=== PATIENT | male | born 1965 | race Caucasian/White ===

== ENCOUNTER → 2017-11-30 | Outpatient (CLI) | payer BC ==
[2017-11-30 13:06] LABS: Basophils % (A) 0 %; Eosinophils # (A) 0.2 k/uL (0-0.7); Eosinophils % (A) 2 %; HCT 48.4 % (39.0-53.0); HGB 15.9 gm/dL (13.0-17.5); INR 1.2 (<1.2); Lymphocytes # (A) 1.7 k/uL (1.0-4.8); Lymphocytes % (A) 20 %; MCH 31.4 pg (25.0-35.0); MCHC 32.9 g/dL (31.0-37.0); MCV 95.4 fL (80.0-100.0); Monocytes # (A) 0.5 k/uL (0-1.0); Monocytes % (A) 5 %; Neutrophils # (A) 6.2 k/uL (1.3-7.7); Neutrophils % (A) 71 %; Partial Thromboplastin Time 22.5 sec (22.0-30.0); Platelet Count 250 k/uL (150-450); Prothrombin Time 11.5 sec (9.0-12.0); RBC 5.08 m/uL (4.30-5.90); RDW 12.8 % (11.5-15.5); WBC 8.7 k/uL (3.8-10.6)
[2017-11-30 13:12] LABS: Potassium 4.7 mmol/L (3.5-5.1)
--- NOTE | 2017-11-30 13:40 | XR ---
EXAMINATION TYPE: XR chest 2V DATE OF EXAM: 11/30/2017 COMPARISON: NONE HISTORY: Presurgical study. TECHNIQUE: Frontal and lateral views of the chest are obtained. FINDINGS: There is no focal air space opacity, pleural effusion, or pneumothorax seen. The cardiac silhouette size is within normal limits. The osseous structures are intact. IMPRESSION: No acute cardiopulmonary process.
== END | disposition home or self-care (01) ==
LOC: LABPAT 12:38
PROVIDERS: ATTEND Orthopaedic Surgery
DX: Z01.818 Encounter for other preprocedural examination (principal); Z01.812 Encounter for preprocedural laboratory examination; M16.11 Unilateral primary osteoarthritis, right hip
CPT/HCPCS: 36415; 71046; 80051; 85025; 85610; 85730; 87070; 93005

== ENCOUNTER → 2017-12-01 | Outpatient (CLI) | payer BC | END | disposition home or self-care (01) | LOC: LABPAT 09:08 | PROVIDERS: ATTEND Orthopaedic Surgery | DX: Z01.812 Encounter for preprocedural laboratory examination (principal); M16.11 Unilateral primary osteoarthritis, right hip | CPT/HCPCS: 86850; 86900; 86901 ==

== ENCOUNTER 2017-12-12 07:30 | Day surgery (SDC) | payer BC ==
[2017-12-09 11:40] VITALS: BMI 46.8
[2017-12-12] MEDS ORDERED: SODIUM CHLORIDE 0.9% 1,000 ML in EMPTY BAG 1 BAG IV ONE (07:56)
[2017-12-12] MEDS ORDERED: NITROGLYCERIN SL TABS 0.4 MG TAB SUBLINGUAL PRN (07:56)
[2017-12-12] MEDS ORDERED: ALPRAZolam 0.25 MG TAB PO PRN (07:56)
[2017-12-12] MEDS ORDERED: ALPRAZolam 0.5 MG TAB PO PRN (07:56)
[2017-12-12] MEDS ORDERED: ASPIRIN 325 MG TAB PO STA (07:57)
[2017-12-12] MEDS ORDERED: ATORVASTATIN 80 MG TAB PO STA (07:58)
[2017-12-12 08:14] VITALS: TEMP 97.9
[2017-12-12] MEDS ORDERED: MIDAZOLAM 2 MG/2 ML VIAL ONE (09:03)
[2017-12-12] MEDS ORDERED: fentaNYL (PF) 50 MCG/ML 2 ML AMP ONE (09:03)
[2017-12-12] MEDS ORDERED: MIDAZOLAM 2 MG/2 ML VIAL IV ONE (09:12)
[2017-12-12] MEDS ORDERED: fentaNYL (PF) 50 MCG/ML 2 ML AMP IV ONE (09:12)
[2017-12-12] MEDS ORDERED: LIDOCAINE 2% INJ 20 MG/ML SQ ONE (09:16)
[2017-12-12] MEDS ORDERED: HEPARIN SODIUM 1,000 UN/ML (10ML VL) ONE (09:17)
[2017-12-12] MEDS: VERAPAMIL SYRINGE (5 MG/10 ML) INTRAARTER ONE ×2 (09:20→09:35)
[2017-12-12] MEDS ORDERED: HEPARIN SODIUM 1,000 UN/ML (10ML VL) IV ONE (09:21)
[2017-12-12] MEDS ORDERED: VERAPAMIL SYRINGE (5 MG/10 ML) INTRAARTER ONE (09:21)
[2017-12-12] MEDS ORDERED: IOHEXOL 350 MG/ML 125ML BOTTLE INJ ONE (09:36)
[2017-12-12] MEDS ORDERED: RX INFO: IV CONTRAST WAS GIVEN 1 EACH MISC MISCELLANE PRN (09:43)
[2017-12-12] MEDS ORDERED: SODIUM CHLORIDE 0.9% 1,000 ML IV SCH (09:45)
--- NOTE | 2017-12-12 09:55 | P.PCN ---
Date of Procedure: 12/12/17 Preoperative Diagnosis: Preop clearance, positive stress test and family history of ischemic heart disease Postoperative Diagnosis: Normal coronary arteries. Normal LV and end-diastolic pressure. No gradient across the aortic valve Procedure(s) Performed: HISTORY: This is a 52-year-old obese gentleman with history of chronic atrial fibrillation who was recently seen for preoperative cardiac evaluation and clearance for hip surgery. Patient has a strong family history of ischemic heart disease. Patient had a stress test which was suggestive 0f possible ischemia in the lateral wall area. Patient is advised to have cardiac catheterization for definitive diagnosis. Patient and family were explained the risks and benefits of the procedure. CONSENT:I have discussed the risks, benefits and alternative therapies for the above-mentioned procedure and for both sedation/analgesia as well as necessary blood product administration, if indicated, as they pertain to this patient. The patient has indicated understanding and acceptance of the risks and procedures discussed. PROCEDURE: Patient was brought to the lab in a fasting state. Patient was given some IV sedation. The right wrist is infiltrated with lidocaine and right radial artery was entered using Seldinger technique. A 6-Spanish catheter was left in place and selective coronary arteriography was performed. Patient tolerated the procedure well. Wrist band was applied for hemostasis .No immediate complications were noted and patient was transferred to [facility] in a stable condition Conscious Sedation: Versed 1 mg Fentanyl 50 g Duration 21 minutes HEMODYNAMICS: The aortic pressure is about 101 /70. There was no gradient across the aortic valve. Left ankle end-diastolic pressure is about 15 SELECTIVE CORONARY ARTERIOGRAPHY: LEFT MAIN: Normal length and patent THE LEFT ANTERIOR DESCENDING CORONARY ARTERY:. Good caliber vessel giving rise to good-sized diagonal branch. The LAD and its branches are free of any occlusive disease. THE LEFT CIRCUMFLEX AND IS CORONARY ARTERY: Moderate caliber vessel free of any occlusive disease THE RIGHT CORONARY ARTERY:. Dominant vessel giving rise good-sized PDA and PLV branches. Right coronary artery and branches are free of occlusive disease LEFT VENTRICULOGRAPHY:. Not performed FINAL IMPRESSION:, Normal coronary arteries. Mildly elevated end-diastolic pressure PLAN:. Continue maximal medical therapy and patient is cleared for hip surgery with average risk. PROGNOSIS:. Fair
[2017-12-12 11:14] VITALS: BP 116/76; PULSE 72; RESP 16
[2017-12-12] MEDS ORDERED: PRASUGREL 10 MG TAB ONE (11:52)
[2017-12-12] MEDS ORDERED: HYDROmorphone 2 MG/ML 1 ML SYRINGE ONE (11:54)
== END 2017-12-12 14:27 | disposition home or self-care (01) ==
LOC: CATHCVL 07:30
PROVIDERS: ATTEND Internal Medicine Cardiovascular Disease
DX: R94.39 Abnormal result of other cardiovascular function study (principal); I48.2 Chronic atrial fibrillation; E66.01 Morbid (severe) obesity due to excess calories; Z68.42 Body mass index [BMI] 45.0-49.9, adult; Q21.1 Atrial septal defect; Z82.49 Family history of ischemic heart disease and other diseases of the circulatory system; Z79.899 Other long term (current) drug therapy
CPT/HCPCS: 93458; C1894 ×2; C1769; J2001; J2250; J3010; J1644; Q9967

== ENCOUNTER 2017-12-20 11:41 | Inpatient (IN) | payer BC ==
[2017-12-15 11:35] VITALS: BMI 46.8
--- NOTE | 2017-12-19 13:55 | HP ---
HISTORY AND PHYSICAL CHIEF COMPLAINT: Right hip pain. 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 He notes increasing pain over the past month where he is having a difficult time putting any weight on that leg. He notes he has been limping. He notes significant limitation because of the pain. PAST MEDICAL HISTORY: Significant for arthritis. PAST SURGICAL HISTORY: Significant for foot surgery. CURRENT MEDICATIONS: 1. Loratadine. 2. Prednisone. 3. Methocarbamol. He denies drug allergies. FAMILY HISTORY: Significant for COPD. SOCIAL HISTORY: Negative for current tobacco or alcohol use. 16 POINT REVIEW OF SYSTEMS: Otherwise reviewed and is noncontributory. PHYSICAL EXAMINATION: The patient is approximately 6 foot 2, 365 pounds of endomorphic habitus. HEENT exam is nonfocal. Neck is supple. Passive motion of the right hip shows flexion 65 degrees, external rotation with the hip flexed 20 degrees. Internal rotation is 10 degrees with pain. Clinically, he has 1 cm shortening of the left lower extremity compared to the right. His distal neurovascular exam appears intact in the right lower extremity. AP and frog lateral views of the right hip obtained in the office show severe right hip osteoarthrosis. IMPRESSION: 1. Right hip severe osteoarthrosis-symptomatic. 2. Increased body mass index. RECOMMENDATIONS: I talked to the patient at length regarding his treatment options. At this point, he is quite limited because of pain related to his osteoarthrosis. After thorough discussion, he opts to proceed with surgery. We will plan to proceed with right total hip arthroplasty. Risks and benefits were discussed at length in layman's terms. The patient underwent preoperative cardiac clearance by Dr. Luke. MMANAL / VICENTEN: [id number] /
[~2017-12-20 11:41] MED LIST: ACETAMINOPHEN TAB 500 MG TAB PO ONE; DEXAMETHASONE SOD PHOSPHATE 10 MG/ML 1 ML VIAL IV ONE; MELOXICAM 7.5 MG TAB PO ONE; MIDAZOLAM 2 MG/2 ML VIAL IV PRN; MORPHINE SULFATE 4 MG/ML SYRINGE IV PRN; ONDANSETRON 4 MG/2 ML VIAL IVP ONE; SCOPOLAMINE 1.5MG/72HR PATCH TRANSDERM ONE; TRANEXAMIC ACID 1,000 MG in SODIUM CHLORIDE 0.9% 50 ML IVPB ONE
[2017-12-20] MEDS: LACTATED RINGERS 1,000 ML IV SCH ×2 (12:05→23:30)
[2017-12-20] MEDS ORDERED: LIDOCAINE 1% 20 ML VIAL (10MG/ML) FOR IV START INTRADERMA ONE (12:06)
[2017-12-20] MEDS ORDERED: PHENYLEPHRINE-0.9% NACL SYG 1 MG/10 ML SYRINGE ONE (12:23)
[2017-12-20] MEDS ORDERED: TRANEXAMIC ACID 1,000 MG/10 ML VIAL ONE (12:23)
[2017-12-20] MEDS ORDERED: ePHEDrine SULFATE/0.9% NACL/PF 50 MG/5 ML SYRINGE IV ONE (12:23)
[2017-12-20] MEDS ORDERED: PROPOFOL 10 MG/ML 20 ML VIAL IV ONE (12:23)
[2017-12-20] MEDS ORDERED: fentaNYL (PF) 50 MCG/ML 2 ML AMP ONE (12:23)
[2017-12-20] MEDS ORDERED: MIDAZOLAM 2 MG/2 ML VIAL ONE (12:23)
[2017-12-20] MEDS ORDERED: SODIUM CHLORIDE 0.9% 100 ML BAG ONE (12:23)
[2017-12-20] MEDS ORDERED: diphenhydrAMINE 50 MG/ML 1 ML VIAL ONE (12:23)
[2017-12-20] MEDS ORDERED: ceFAZolin 1,000 MG in SODIUM CHLORIDE 0.9% 1,000 ML IRRIGATION ONE ×2 (13:06→14:36)
[2017-12-20] MEDS ORDERED: LACTATED RINGERS 1,000 ML IV ONE ×2 (13:27→15:41)
[2017-12-20] MEDS ORDERED: HYDROcodone/APAP 7.5-325MG 1 EACH TAB PO PRN (14:56)
[2017-12-20] MEDS ORDERED: ONDANSETRON 4 MG/2 ML VIAL IVP PRN (14:56)
[2017-12-20] MEDS ORDERED: MAGNESIUM HYDROXIDE 2,400 MG/10 ML CUP PO PRN (14:56)
[2017-12-20] MEDS ORDERED: NALOXONE 0.4 MG/ML 1 ML VIAL IV PRN (14:56)
[2017-12-20] MEDS ORDERED: HYDROmorphone 2 MG/ML 1 ML SYRINGE IVP PRN (14:56)
--- NOTE | 2017-12-20 15:29 | P.OP ---
Date of Procedure: 12/20/17 Preoperative Diagnosis: Right hip severe osteoarthrosis Postoperative Diagnosis: Same Procedure(s) Performed: Right total hip glhsparhjoai-tsceb-syo Implants: Depuy Corail size 13 high offset femoral stem, 36 mm +5 cobalt chrome femoral head, neutral polyethylene liner, 60 mm Shirland acetabular shell. Anesthesia: spinal Surgeon: Bull Voss Body Coverer #1: Rodrigo Tom Estimated Blood Loss (ml): 300 Pathology: other (Femoral head) Condition: stable Disposition: PACU Indications for Procedure: The patient's a 52-year-old male who presents with progressive right hip pain secondary to severe osteoarthrosis despite conservative measures. He notes the pain was interfering with his normal function and activities. A difficult time with any ambulation. A discussion of the risks and benefits of continued conservative measures versus operative intervention was made with patient. He opted to proceed with surgery. Specific risks of surgery to include infection, neurovascular injury, development of blood clots, dislocation, possible leg length discrepancy and need for subsequent procedures was discussed. Informed consent was obtained. Operative Findings: Severe osteoarthrosis Description of Procedure: The patient was brought to the operating room, and after induction of spinal anesthesia was placed into the lateral decubitus position. The bony prominences were appropriately padded. The pelvis was stabilized perpendicular to the floor with a pegboard. The right lower extremity was prepped and draped in normal fashion. A 15 cm incision was then made centered over the greater trochanter extending superiorly to level the ASIS and distally in line with the femoral shaft. The skin and subcu changed tissues were divided sharply. Electrocautery was used for hemostasis. The fascia danielle and gluteus cici fascia was split in line with the skin incision. The muscle fibers were bluntly dissected proximally. A self-retaining retractor was placed. The anterior and posterior margins of the gluteus medius muscles identified and the anterior two thirds detached from the greater trochanter with electrocautery. The gluteus minimus tendon was identified and detached in a similar fashion. A wide capsulotomy was performed. The hip was gently dislocated. The neck was cut at a 45 angle the shaft with a sagittal saw approximately 1 cm above the level of the lesser trochanter. The head was then extracted. Attention was then paid towards preparing the acetabulum. Retractors were placed anterior and posteriorly. The remaining capsular and labral tissue was debrided sharply clearly defining the acetabular margins. I began reaming with a 56 mm reamer taking care to initially medialize and then reaming at 45 of abduction and 20 of anteversion. Sequential reaming was performed up to 59 mm. I was down to a bleeding bony surface. A trial 60 mm acetabular shell was inserted in the same orientation and was fully seated. There was good rim fit and stability. This was then removed and the final implant inserted at 45 of abduction and 20 of anteversion. Again there was good rim fit and stability. Because of his body mass index and did place one 6.5 x 30 mm cancellus screw with good purchase. A neutral polyethylene liner was gently impacted. Care was taken to avoid any soft tissue interposition. Pulsatile lavage was utilized. Attention was then paid towards preparing the proximal femur. A box chisel was used to open the metaphyseal region. A canal finder was used to find the femoral canal. Sequential broaching was performed up to a size 13 broach. This is placed in 15 of anteversion with the leg perpendicular to the floor judging off the trans- epicondylar axis. There was good rotational stability. A calcar mill was used to fashion the medial calcar. A KLA neck component along with a 36+5 trial head was placed. The hip was gently relocated. It was taken through range of motion and felt to be stable in flexion and extension with internal and external rotation. I felt there was adequate amish of soft tissue tension. The hip was gently dislocated. The trial components were then removed. The femoral stem was inserted again with the leg perpendicular to the floor in 15 of anteversion. Again there was good rotational stability. A 36 mill meter +5 cobalt chrome femoral head was gently impacted. The hip was gently relocated. Again it was taken through range of motion felt to be stable in flexion and extension with internal and external rotation. Again I felt there was adequate amish of soft tissue tension. Pulsatile lavage was again utilized. The gluteus minimus and medius tendons reattached the greater trochanter with #2 Ethibond suture with the hip in slight abduction. The fascia danielle and gluteus cici fascia was closed with running #2 Ethibond suture. He did not have much drainage at this point therefore I did not place a deep drain. The deep and superficial subcutaneous tissues were reapproximated interrupted 2-0 Vicryl sutures. The skin was reapproximated with 3-0 subcuticular strata fix suture. Skin tape and adhesive was applied. A sterile dressing was applied. The patient was awoken from sedation and transferred to recovery room in good condition. Blood loss was estimated at 300 mL. No complications were incurred. Sponge and needle counts were correct at the end the case.
--- NOTE | 2017-12-20 15:37 | XR ---
Right hip HISTORY: Status post right hip arthroplasty Single frontal view of the right hip, no comparisons available Patient is status post right hip arthroplasty. There is anatomic alignment. Hypertrophic change noted in the lateral aspect of the acetabulum. Small ossific densities about the prosthesis may be well-co rticated and chronic, correlate with preoperative exam. Lucency in the soft tissues compatible with p ostop state. IMPRESSION: Orthopedic follow-up as described.
--- NOTE | 2017-12-20 17:20 | P.CONS ---
History of Present Illness - Reason for Consult Consult date: 12/20/17 Medical management - Chief Complaint Hip pain - History of Present Illness 52-year-old male with history of right hip injury secondary to fall in 2011 is mainly here for total right hip replacement. He has been having worsening pain in the whole right lower extremity as well as lower back because of the right hip. In 2014 he had a toe surgery and at that time he was found to have atrial fibrillation. When he had the preoperative examination for the hip surgery he had an EKG and that showed atrial fibrillation as well. He was seen by transmission and protection engineer who started him on apixiban as well as metoprolol. Patient is not symptomatic from the atrial fibrillation standpoint, no chest pain, no shortness of breath or palpitations. Family reported that he lost about 70 pounds over the last 2 years. He has been exercising well. Currently is doing well, he only has slight pain in the right hip area. Review of Systems 12 point review of system was performed, negative except for HPI Past Medical History Past Medical History: Atrial Fibrillation, Osteoarthritis (OA), Sleep Apnea/CPAP /BIPAP Additional Past Medical History / Comment(s): using a walker History of Any Multi-Drug Resistant Organisms: None Reported Past Surgical History: Heart Catheterization, Orthopedic Surgery Additional Past Surgical History / Comment(s): rt little toe surgery, vasectomy Past Anesthesia/Blood Transfusion Reactions: No Reported Reaction Smoking Status: Never smoker Past Alcohol Use History: Occasional - Past Family History Mother Family Medical History: Cancer Medications and Allergies Home Medications Medication Instructions Recorded Confirmed Type Apixaban [Eliquis] 5 mg PO BID 12/05/17 12/15/17 History Loratadine [Claritin] 10 mg PO DAILY 12/05/17 12/15/17 History Multivitamins, Thera [Multivitamin 1 tab PO DAILY 12/05/17 12/15/17 History (formulary)] [place]-3 Fatty Acids/Fish Oil [Fish 1 cap PO DAILY 12/05/17 12/20/17 History Oil 1,000 mg Softgel] Metoprolol Tartrate [Lopressor] 12.5 mg PO BID 12/20/17 12/20/17 History Allergies Allergy/AdvReac Type Severity Reaction Status Date / Time No Known Allergies Allergy Verified 12/20/17 16:55 Physical Exam Vitals: Vital Signs Temp Pulse Pulse Resp BP Pulse Ox 12/20/17 16:00 78 16 101/53 98 12/20/17 15:45 78 16 106/59 98 12/20/17 15:31 68 18 103/53 98 12/20/17 15:16 98 F 86 18 105/55 98 12/20/17 11:58 98.2 F 70 16 133/83 98 Intake and Output 12/20/17 12/20/17 12/20/17 06:59 14:59 22:59 Intake Total 1752 0 Output Total 600 Balance 1152 0 Intake: IV 1752 0 Output: Urine 300 Estimated Blood Loss 300 Constitutional: No acute distress, conversant, pleasant Eyes:Anicteric sclerae, moist conjunctiva, no lid-lag, PERRLA, ENMT: Oropharynx clear, no erythema, exudates Neck: Supple, FROM, no masses, or JVD, No carotid bruits, No thyromegaly Lungs: Clear to auscultation, Clear to percussion, Normal respiratory effort, no accessory muscle use Cardiovascular: Heart regular in rate and rhythm, No murmurs, gallops, or rubs, No peripheral edema Abdominal: Soft, Nontender, no guarding, rebound or rigidity, Normoactive bowel sounds, No hepatomegaly, No splenomegaly, No palpable mass Skin: Normal temperature, tone, texture, turgor, no induration, No subcutaneous nodules, No rash, lesions, No ulcers Extremities: Surgical dressing over the right hip area. No digital cyanosis, No clubbing, Pedal pulses intact and symmetrical, Radial pulses intact and symmetrical, No calf tenderness Psychiatric: Alert and oriented to person, place and time, appropriate affect, intact judgement Neuro: Muscles Strength 5/5 in all 4 extremities, Sensation to light touch grossly present throughout, Cranial nerves II-XII grossly intact, no focal sensory deficits Assessment and Plan Plan: #1 Status post total right hip arthroplasty: Post operative day #0 Management per surgery #2 Persistent atrial fibrillation: Telemetry Continue apixiban and metoprolol #3 ALLERGIES Continue loratadine #4 DVT prophylaxis Patient will be on apixiban as above
[2017-12-20] MEDS: traMADol 50 MG TAB PO SCH ×2 (17:28→20:44)
[2017-12-20] MEDS: HYDROcodone/APAP 7.5-325MG 1 EACH TAB PO PRN (19:22)
[2017-12-20] MEDS: METOPROLOL TARTRATE 12.5 MG TAB PO SCH (20:56)
[2017-12-20] MEDS ORDERED: SENNOSIDES-DOCUSATE SODIUM 1 EACH TAB PO SCH (21:00)
[2017-12-20] MEDS: HYDROmorphone 2 MG/ML 1 ML SYRINGE IVP PRN (22:53)
[2017-12-21] MEDS: HYDROcodone/APAP 7.5-325MG 1 EACH TAB PO PRN ×2 (01:37→07:21)
[2017-12-21] MEDS: HYDROmorphone 2 MG/ML 1 ML SYRINGE IVP PRN (04:04)
[2017-12-21] MEDS: traMADol 50 MG TAB PO SCH ×2 (07:20→12:38)
[2017-12-21] MEDS: METOPROLOL TARTRATE 12.5 MG TAB PO SCH (07:20)
[2017-12-21 07:45] VITALS: BP 118/72; PULSE 81; RESP 16; TEMP 98.1
[2017-12-21 07:45] LABS: Basophils % (A) 0 %; Eosinophils # (A) 0.1 k/uL (0-0.7); Eosinophils % (A) 1 %; HGB 13.8 gm/dL (13.0-17.5); Lymphocytes # (A) 1.3 k/uL (1.0-4.8); Lymphocytes % (A) 15 %; MCH 30.2 pg (25.0-35.0); MCHC 31.3 g/dL (31.0-37.0); MCV 96.3 fL (80.0-100.0); Mean Platelet Volume 7.3; Monocytes # (A) 0.6 k/uL (0-1.0); Monocytes % (A) 7 %; Neutrophils # (A) 6.6 k/uL (1.3-7.7); Neutrophils % (A) 76 %; Platelet Count 296 k/uL (150-450); RBC 4.56 m/uL (4.30-5.90); RDW 12.6 % (11.5-15.5); WBC 8.8 k/uL (3.8-10.6)
[2017-12-21] MEDS ORDERED: HYDROcodone/APAP 10-325MG 1 EACH TAB PO PRN ×2 (08:08→08:09)
[2017-12-21] MEDS ORDERED: APIXABAN 5 MG TAB PO SCH (09:00)
[2017-12-21] MEDS ORDERED: FAMOTIDINE 20 MG TAB PO SCH (09:00)
[2017-12-21] MEDS ORDERED: LORATADINE 10 MG TAB PO SCH (09:00)
--- NOTE | 2017-12-21 11:15 | P.PN ---
Subjective Progress Note Date: 12/21/17 Principal diagnosis: Status post right total hip arthroplasty Patient is seen today resting in his hospital bed, he appears comfortable. I visualized him working with physical therapy, he did utilize the stairs adequately. He denies any chest pain, shortness of breath, fever or chills. Objective - Vital Signs Vital signs: Vital Signs Temp 98.1 F 12/21/17 07:00 Pulse 81 12/21/17 07:00 Resp 16 12/21/17 07:00 BP 118/72 12/21/17 07:00 Pulse Ox 96 12/21/17 07:00 Intake & Output 12/20/17 12/21/17 12/21/17 18:59 06:59 18:59 Intake Total 1752 950 300 Output Total 1000 1550 250 Balance 752 -600 50 Weight 165.561 kg Intake: IV 1752 Intake, IV Titration 480 Amount Lactated Ringers 1,000 ml 480 @ 60 mls/hr IV .[id number] RADHA Rx#:[id number] Oral 470 300 Output: Urine 700 1550 250 Uretheral (Major) 250 Estimated Blood Loss 300 Other: Voiding Method Indwelling Catheter - Exam Right lower extremity: Incision is clean, dry, and intact. The [prineo tape] is in good condition. [ There is minimal soft tissue swelling and ecchymosis surrounding the medial and lateral aspects of the incision.] Calf is soft, no tenderness with palpation. Plantar flexion, dorsiflexion, EHL, FHL are intact. Sensory exam to light touch throughout the extremity is intact, [dorsal pedis pulses 2+.] - Labs CBC & Chem 7: 12/21/17 07:06 Assessment and Plan Plan: Assessment: 1. Postop day #1 status post right total hip arthroplasty Plan: 1. Pain control, utilize oral medication 2. Continue work with physical therapy 3. GI and DVT prophylaxis, resume Eliquis 5 mg twice a day 4. Encourage incentive spirometer 5. Daily dressing changes 6. Medical recommendations 7. Discharge planning: Patient will likely be discharged home today if able to urinate on his own Time with Patient: Less than 30
--- NOTE | 2017-12-21 11:19 | P.DS ---
Providers Date of admission: 12/20/17 11:41 Expected date of discharge: 12/21/17 Attending physician: Bull Voss Consults: 12/20/17 14:56 Consult Physician Routine Consulting Provider: Valerie Diaz Consult Reason/Comments: Medical management Do you want consulting provider notified?: Yes 12/20/17 16:20 Consult Physician Routine Consulting Provider: Ronald Grider Consult Reason/Comments: medical management Do you want consulting provider notified?: Yes Primary care physician: Valerie Diaz MD Hospital Course: Date of admission: 12/20/2017 Date of discharge: 12/21/2017 Admission diagnosis: Status post right total hip arthroplasty Discharge diagnosis: Same Attending physician: Dr. Voss Surgical procedures: Right total hip arthroplasty Brief history: Patient is a 52-year-old male with a history of progressive primary right hip osteoarthritis. At this point patient has failed conservative treatment measures and has opted to proceed with a elective right total hip arthroplasty. Hospital course: Details of patient's surgery can be found in operative report. Patient tolerated the procedure well and was subsequently transported to orthopedic floor. Patient's orthopeidc and medical care was provided daily. Patient had daily laboratory tests performed for evaluation of overall blood counts. Patient had daily physical therapy to include strengthening range of motion as well as education with walker ambulation. Patient was treated with Eliquis for their postoperative DVT prophylaxis during their inpatient stay. Patient was noted to have a relatively uneventful postoperative course. Patient reported satisfactory pain control with oral pain medications by postoperative day 0. Patient showed satisfactory progress with physical therapy. Patient moved steadily through the program and had no difficulty meeting the goals by postoperative day 1. Given patient's otherwise satisfactory course and having met physical therapy goals, plan is to discharge patient home on postoperative day 1. Discharge condition/disposition: Patient will be discharged home in stable condition. Discharge medications: Instructions are given on resumption of patient's normal daily medications per primary care recommendation, in addition patient will be prescribed [place] 10 mg/325 mg, tramadol 50 mg, Colace 100 mg. Discharge instructions: 1. Wound care and infection precautions, keep incision dry and covered while showering, no lotions, creams, moisturizers. No soaking, tubs, pools, hottubs. Do not scrub over the incision. 2. Weight-bear as tolerated with walker / cane until follow-up. 3. Ice and elevate when necessary. Do not exceed 20 minutes per hour with ice pack. 4. Utilize compression sleeve until seen at first follow up appointment. 5. Visiting nursing care. 6. Home physical therapy. 7. Pain meds and anticoagulants per prescription. 8. Pain medication has potential to cause constipation. Increase oral fluid and fiber intake. Contact primary care provider if you have not had a bowel movement within 48 hours after discharge 9. No anti-inflammatory medication until discussed at first post operative visit, this including Motrin, Aleve, Mobic, Diclofenac. 10. Follow up in office at 2 weeks postop with Alli Tom PA-C 11. Follow up with your primary care doctor 7-10 days after discharge. 12. Contact [facility] with any questions, . Procedures: Right total hip arthroplasty Patient Condition at Discharge: Good Plan - Discharge Summary Discharge Rx Participant: Yes New Discharge Prescriptions: New Docusate [Colace] 100 mg PO DAILY #30 capsule Hydrocodone/Acetaminophen [[place] 10-325] 1 each PO Q6H PRN #60 tab PRN Reason: Pain traMADol HCl [Ultram] 50 mg PO Q6H PRN #40 tab PRN Reason: Pain No Action [place]-3 Fatty Acids/Fish Oil [Fish Oil 1,000 mg Softgel] 1 cap PO DAILY Multivitamins, Thera [Multivitamin (formulary)] 1 tab PO DAILY Loratadine [Claritin] 10 mg PO DAILY Apixaban [Eliquis] 5 mg PO BID Metoprolol Tartrate [Lopressor] 12.5 mg PO BID Discharge Medication List Apixaban [Eliquis] 5 mg PO BID 12/05/17 [History] Loratadine [Claritin] 10 mg PO DAILY 12/05/17 [History] Multivitamins, Thera [Multivitamin (formulary)] 1 tab PO DAILY 12/05/17 [History ] [place]-3 Fatty Acids/Fish Oil [Fish Oil 1,000 mg Softgel] 1 cap PO DAILY [History] Metoprolol Tartrate [Lopressor] 12.5 mg PO BID 12/20/17 [History] Docusate [Colace] 100 mg PO DAILY #30 capsule 12/21/17 [Rx] Hydrocodone/Acetaminophen [[place] 10-325] 1 each PO Q6H PRN #60 tab 12/21/17 [Rx] traMADol HCl [Ultram] 50 mg PO Q6H PRN #40 tab 12/21/17 [Rx] Follow up Appointment(s)/Referral(s): [facility], [NON-STAFF] - Rodrigo Tom, ACE [PHYSICIAN SENIOR DYNAMICS CRM DEVELOPER] - 01/06/18 1:30 pm Patient Instructions/Handouts: Total Hip Replacement (DC) Activity/Diet/Wound Care/Special Instructions: Orthopedic Discharge Instructions: 1. Wound care and infection precautions, keep incision dry and covered while showering, no lotions, creams, moisturizers. No soaking, pools, hot tubs. Do not scrub over incision. 2. Weight-bear as tolerated with walker / cane until follow-up. 3. Ice and elevate when necessary. Do not exceed 20 minutes per hour with ice pack. 4. Utilize compression sleeve until seen at first follow up appointment. 5. Visiting nursing care. 6. Home physical therapy 7. Pain meds and anticoagulants per prescription. 8. Pain medication has potential to cause constipation. Increase oral fluid and fiber intake. Contact primary care provider if you have not had a bowel movement within 48 hours after discharge. 9. No anti-inflammatory medication until discussed at first post operative visit, this including Motrin, Aleve, Mobic, Diclofenac. 10. Follow up in office at 2 weeks postop with Alli Tom PA-C 11. Follow up with your primary care doctor 7-10 days after discharge. 12. Contact [facility] with any questions, . Discharge Disposition: HOME WITH HOME HEALTH SERVICES
--- NOTE | 2017-12-21 12:20 | P.PN ---
Subjective Progress Note Date: 12/21/17 Principal diagnosis: Right hip pain. Feeling better, worked with therapy this am. He was able to get up from the bed and move around the ortiz with the help of a walker. Objective - Vital Signs Vital signs: Vital Signs Temp 98.1 F 12/21/17 07:00 Pulse 81 12/21/17 07:00 Resp 16 12/21/17 07:00 BP 118/72 12/21/17 07:00 Pulse Ox 96 12/21/17 07:00 Intake & Output 12/20/17 12/21/17 12/21/17 18:59 06:59 18:59 Intake Total 1752 950 300 Output Total 1000 1550 900 Balance 752 -600 -600 Weight 165.561 kg Intake: IV 1752 Intake, IV Titration 480 Amount Lactated Ringers 1,000 ml 480 @ 60 mls/hr IV .[id number] [facility] Rx#:[id number] Oral 470 300 Output: Urine 700 1550 900 Uretheral (Major) 250 Estimated Blood Loss 300 Other: Voiding Method Indwelling Catheter - Exam Constitutional: No acute distress, conversant, pleasant Eyes:Anicteric sclerae, moist conjunctiva, no lid-lag, PERRLA, ENMT: Oropharynx clear, no erythema, exudates Neck: Supple, FROM, no masses, or JVD, No carotid bruits, No thyromegaly Lungs: Clear to auscultation, Clear to percussion, Normal respiratory effort, no accessory muscle use Cardiovascular: Heart regular in rate and rhythm, No murmurs, gallops, or rubs, No peripheral edema Abdominal: Soft, Nontender, no guarding, rebound or rigidity, Normoactive bowel sounds, No hepatomegaly, No splenomegaly, No palpable mass Skin: Normal temperature, tone, texture, turgor, no induration, No subcutaneous nodules, No rash, lesions, No ulcers Extremities: Surgical dressing over the right hip area. No digital cyanosis, No clubbing, Pedal pulses intact and symmetrical, Radial pulses intact and symmetrical, No calf tenderness Psychiatric: Alert and oriented to person, place and time, appropriate affect, intact judgement Neuro: Muscles Strength 5/5 in all 4 extremities, Sensation to light touch grossly present throughout, Cranial nerves II-XII grossly intact, no focal sensory deficits - Labs CBC & Chem 7: 12/21/17 07:06 Assessment and Plan Plan: #1 Status post total right hip arthroplasty: Post operative day #1 Management per surgery--plan to d/c today. #2 Persistent atrial fibrillation: Telemetry Continue apixiban and metoprolol #3 ALLERGIES Continue loratadine #4 DVT prophylaxis Patient will be on apixiban as above
--- NOTE | 2017-12-23 07:39 | CDI ---
Last Revision, October 2017 Documentation Clarification Form Date: 12/23/2017 7:32:00 AM From: Mercedes De Souza Admit Date: 12/20/2017 11:41:00 AM Patient Name: Carlito Breaux Visit Number: [id number] Discharge Date: ATTENTION: The Clinical Documentation Specialists (CDI) and [facility] Coding Staff appreciate your assistance in clarifying documentation. Please respond to the clarification below the line at the bottom and electronically sign. The CDI & [facility] Coding staff will review the response and follow-up if needed. Please note: Queries are made part of the Legal Health Record. If you have any questions, please contact the author of this message via ITS. Dr. Bull Voss Patient has been described as increased body mass index History/Risk Factors: sleep apnea, hypertension, total hip replacement Patients weight is 363 Patients height is 6'2 Calculated BMI is 46.9 In order to capture the severity of condition associated with patient BMI of 46.9, a clinical diagnoses needs to be documented by the physician. Please clarify: Obese Morbidly obese Other, please specify ____ Unable to determine Please continue to document in your progress notes and discharge summary in order to capture severity of illness and risk of mortality. Include clinical findings that support your diagnosis. The patient is obese. MTDD
== END 2017-12-21 14:06 | disposition home health service (06) | DRG 470 ==
LOC: 2ORMAIN 11:41 → 3SUR 15:15
PROVIDERS: ADMIT Orthopaedic Surgery; ATTEND Orthopaedic Surgery
PROC: 0SR902A Replacement of Right Hip Joint with Metal on Polyethylene Synthetic Substitute, Uncemented, Open Approach (ICD-10-PCS; principal; 2017-12-20 13:25)
DX: M16.11 Unilateral primary osteoarthritis, right hip (principal); Z68.42 Body mass index [BMI] 45.0-49.9, adult; I48.1 Persistent atrial fibrillation; G47.30 Sleep apnea, unspecified; E66.9 Obesity, unspecified; Z79.84 Long term (current) use of oral hypoglycemic drugs; Z79.899 Other long term (current) drug therapy; Z82.5 Family history of asthma and other chronic lower respiratory diseases; Z98.52 Vasectomy status; Z79.01 Long term (current) use of anticoagulants
CPT/HCPCS: 73501; 85025; 86850; 86900; 86901; 88300

== ENCOUNTER → 2018-01-18 | Outpatient (CLI) | payer BC ==
[2018-01-18 12:06] LABS: Basophils % (A) 0 %; Eosinophils # (A) 0.2 k/uL (0-0.7); Eosinophils % (A) 3 %; HCT 40.9 % (39.0-53.0); HGB 12.9 gm/dL (13.0-17.5); Hypochromasia Slight; Lymphocytes # (A) 1.7 k/uL (1.0-4.8); Lymphocytes % (A) 23 %; MCH 29.9 pg (25.0-35.0); MCHC 31.6 g/dL (31.0-37.0); MCV 94.4 fL (80.0-100.0); Mean Platelet Volume 7.2; Monocytes # (A) 0.5 k/uL (0-1.0); Monocytes % (A) 6 %; Neutrophils # (A) 4.9 k/uL (1.3-7.7); Neutrophils % (A) 66 %; Platelet Count 333 k/uL (150-450); RBC 4.33 m/uL (4.30-5.90); RDW 12.6 % (11.5-15.5); WBC 7.5 k/uL (3.8-10.6)
[2018-01-18 14:36] LABS: Erythrocyte Sedimentation Rate 42 mm/hr (0-15)
== END | disposition home or self-care (01) ==
LOC: LABWHC1 11:20
PROVIDERS: ATTEND Orthopaedic Surgery
DX: M25.551 Pain in right hip (principal)
CPT/HCPCS: 36415; 85025; 85652; 86140

== ENCOUNTER 2018-02-22 10:48 | Day surgery (SDC) | payer BC ==
[2018-02-17 11:21] VITALS: BMI 46.2
[~2018-02-22 10:48] MED LIST changes: -ACETAMINOPHEN TAB 500 MG TAB PO ONE; -DEXAMETHASONE SOD PHOSPHATE 10 MG/ML 1 ML VIAL IV ONE; +LACTATED RINGERS 1,000 ML IV SCH; -MELOXICAM 7.5 MG TAB PO ONE; -MIDAZOLAM 2 MG/2 ML VIAL IV PRN; -MORPHINE SULFATE 4 MG/ML SYRINGE IV PRN; -ONDANSETRON 4 MG/2 ML VIAL IVP ONE; -SCOPOLAMINE 1.5MG/72HR PATCH TRANSDERM ONE; +SODIUM CHLORIDE 0.9% 1,000 ML IV SCH; -TRANEXAMIC ACID 1,000 MG in SODIUM CHLORIDE 0.9% 50 ML IVPB ONE
[2018-02-22 11:06] VITALS: TEMP 98.3
[2018-02-22] MEDS: BENZOCAINE SPRAY 1 CAN MUCOUS MEM ONE ×2 (11:27→11:40)
[2018-02-22] MEDS ORDERED: PROPOFOL 10 MG/ML 20 ML VIAL IV ONE (11:30)
[2018-02-22] MEDS ORDERED: LIDOCAINE 1% INJ 10MG/ML (20 ML MDV) ONE (11:30)
[2018-02-22] MEDS ORDERED: fentaNYL (PF) 50 MCG/ML 2 ML AMP ONE (11:30)
[2018-02-22] MEDS ORDERED: SODIUM CHLORIDE 0.9% (PF) 10 ML VIAL IV ONE (11:47)
[2018-02-22] MEDS ORDERED: SODIUM CHLORIDE 0.9% 1,000 ML IV SCH (12:00)
--- NOTE | 2018-02-22 12:01 | P.PCN ---
Date of Procedure: 02/22/18 Preoperative Diagnosis: Atrial fibrillation with moderate ventricular response Postoperative Diagnosis: Successful conversion to sinus rhythm Procedure(s) Performed: Cardioversion Description of Procedure: This patient is a 52-year-old gentleman with history of persistent atrial fibrillation. He is adequately anticoagulated and was brought in for elective cardioversion. Patient had a [place] examination to rule out any left atrial clot. This revealed evidence of small PFO without any significant valvular abnormalities or clots in the left atrial appendage. Subsequently, patient was given IV sedation by department of anesthesia. Anterior posterior paddles were applied. A single shock of 300 J was applied. Patient converted to sinus rhythm. No immediate complications. Final impression: #1. Presence of small PFO #2. No clot in the left atrial appendage #3. Successful conversion to sinus rhythm. Plan: Patient will be monitored for 2-3 hours and if stable patient be discharged home. Patient will continue anti-cognition therapy as before. Follow-up in the office in one week
--- NOTE | 2018-02-22 12:05 | P.TEE ---
Indications for Procedure(s): Atrial fibrillation, rule out left atrial clot Date of Procedure: 02/22/18 Preoperative Diagnosis: Atrial fibrillation, persistent Postoperative Diagnosis: Successful cardioversion Description of Procedure(s): INDICATION: To rule out clot in the left atrial appendage CONSENT:. Informed consent is obtained from the patient PROCEDURE:. Patient was brought to the lab in a fasting state. He was given IV sedation by department of anesthesia. A lubricated Omni probe was introduced in the oropharynx and was advanced into the esophagus and multiple views were obtained. Patient tolerated the procedure well. Color pulse wave Doppler was performed. Saline contrast bubble injections also performed. FINDINGS: Left atrial appendage is patent and free of any clot. Intra-atrial atrioseptal showed evidence of small PFO with left to right Spontaneous shunt. Injection of the saline contrast bubbles showed evidence of bubbles crossing the interatrial septum. The left atrium appeared to be enlarged. The aortic valve is trileaflet and appears to be functioning normally. There is moderate tricuspid regurgitation. There is trace mitral regurgitation. Left ventricular function appear to be fair IMPRESSION:. #1. No evidence of clot in the left atrial appendage. #2. Presence of small PFO #3. Moderate tricuspid regurgitation. #4. Left atrial enlargement. #5. Left ankle function appear to be fair PLAN: Proceed with cardioversion
[2018-02-22] MEDS ORDERED: IV FLUID CONTINUATION 1,000 ML IV ONE (12:16)
[2018-02-22 13:44] VITALS: RESP 20
[2018-02-22 13:54] VITALS: BP 121/70; PULSE 78
== END 2018-02-22 13:57 | disposition home or self-care (01) ==
LOC: CATHCVL 10:48
PROVIDERS: ATTEND Internal Medicine Cardiovascular Disease
DX: I48.1 Persistent atrial fibrillation (principal); Q21.1 Atrial septal defect; I07.1 Rheumatic tricuspid insufficiency; I49.1 Atrial premature depolarization; G47.33 Obstructive sleep apnea (adult) (pediatric); I10 Essential (primary) hypertension; E66.01 Morbid (severe) obesity due to excess calories; Z68.42 Body mass index [BMI] 45.0-49.9, adult; Z79.01 Long term (current) use of anticoagulants; Z79.899 Other long term (current) drug therapy; Z82.49 Family history of ischemic heart disease and other diseases of the circulatory system
CPT/HCPCS: 93312; 93320; 93325; 92960; J2001; J3010; J2704; 93005

== ENCOUNTER → 2019-04-18 | Outpatient (CLI) | payer BC ==
[2019-04-18 17:37] LABS: Basophils # (A) 0.1 k/uL (0-0.2); Basophils % (A) 1 %; Eosinophils # (A) 0.2 k/uL (0-0.7); Eosinophils % (A) 3 %; HCT 45.3 % (39.0-53.0); HGB 14.3 gm/dL (13.0-17.5); Lymphocytes # (A) 1.7 k/uL (1.0-4.8); Lymphocytes % (A) 27 %; MCH 29.8 pg (25.0-35.0); MCHC 31.6 g/dL (31.0-37.0); MCV 94.1 fL (80.0-100.0); Mean Platelet Volume 7.6; Monocytes # (A) 0.3 k/uL (0-1.0); Monocytes % (A) 4 %; Neutrophils # (A) 4.1 k/uL (1.3-7.7); Neutrophils % (A) 63 %; Platelet Count 210 k/uL (150-450); RBC 4.81 m/uL (4.30-5.90); RDW 14.4 % (11.5-15.5); WBC 6.5 k/uL (3.8-10.6)
[2019-04-18 17:44] LABS: INR 1.1 (<1.2); Partial Thromboplastin Time 25.1 sec (22.0-30.0); Prothrombin Time 11.4 sec (9.0-12.0)
[2019-04-18 17:50] LABS: ALT 40 U/L (21-72); AST 33 U/L (17-59); Albumin 4.7 g/dL (3.5-5.0); Alkaline Phosphatase 84 U/L (38-126); Anion Gap 9 mmol/L; Blood Urea Nitrogen 21 mg/dL (9-20); Carbon Dioxide 32 mmol/L (22-30); Chloride 103 mmol/L (98-107); Cholesterol 144 mg/dL (<200); Glucose 109 mg/dL (74-99); HDL Cholesterol 45 mg/dL (40-60); LDL Cholesterol,Calculated 73 mg/dL (0-99); Magnesium 1.8 mg/dL (1.6-2.3); Potassium 4.5 mmol/L (3.5-5.1); Sodium 144 mmol/L (137-145); Total Bilirubin 0.9 mg/dL (0.2-1.3); Total Protein 8.2 g/dL (6.3-8.2); Triglycerides 128 mg/dL (<150)
--- NOTE | 2019-04-18 18:13 | XR ---
EXAMINATION TYPE: XR chest 2V DATE OF EXAM: 04/18/2019 COMPARISON: 11/30/2017 HISTORY: Preoperative evaluation for hip surgery TECHNIQUE: Frontal and lateral views of the chest are obtained. FINDINGS: There is no focal air space opacity, pleural effusion, or pneumothorax seen. There is mild pulmonary vascular congestion The cardiac silhouette size is mildly enlarged. The osseous structur es are intact. IMPRESSION: Mild pulmonary vascular prominence and cephalization. Correlate for congestive heart jacqueline lure and comminution with mild cardiomegaly.
== END ==
LOC: LABPAT 16:49
PROVIDERS: ATTEND Orthopaedic Surgery
DX: Z01.818 Encounter for other preprocedural examination (principal); I48.2 Chronic atrial fibrillation; M16.12 Unilateral primary osteoarthritis, left hip; Z01.812 Encounter for preprocedural laboratory examination
CPT/HCPCS: 36415; 71046; 80053; 80061; 83735; 85025; 85610; 85730; 87070

== ENCOUNTER 2019-04-24 08:00 | Inpatient (IN) | payer BC ==
--- NOTE | 2019-04-23 10:46 | HP ---
HISTORY AND PHYSICAL CHIEF COMPLAINT: Left hip pain. 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 He notes it limits his normal function and activities. PAST MEDICAL HISTORY: Significant for arthritis and atrial fibrillation along with hypertension. PAST SURGICAL HISTORY: Significant for previous right total hip arthroplasty and foot surgery. CURRENT MEDICATIONS: 1. Amlodipine. 2. Aspirin. 3. Claritin. 4. Metoprolol. ALLERGIES: He denies drug allergies. FAMILY HISTORY: Significant for COPD. SOCIAL HISTORY: Social history is negative for current tobacco or alcohol use. REVIEW OF SYSTEMS: Sixteen point review of systems otherwise reviewed and is noncontributory. PHYSICAL EXAMINATION: On examination, the patient is approximately 6 feet 2 inches, 380 pounds of endomorphic habitus. HEENT exam is nonfocal. Neck is supple. Passive motion left hip, flexion 65 degrees, external rotation with the hip flexed 35 degrees, internal rotation 0 degrees with pain. Clinically, he has 1 cm shortening of the left lower extremity compared to the right. His distal neurovascular exam appears intact in the left lower extremity. X-rays of the left hip obtained in the office show severe osteoarthrosis with bone-on- bone changes. IMPRESSION: 1. Left hip severe osteoarthrosis. 2. Atrial fibrillation. 3. Morbid obesity with body mass index of 48.79. RECOMMENDATIONS: I talked to the patient at length regarding his condition along with treatment options. At this point, he is quite symptomatic and opts to proceed with surgery. We will plan to proceed with left total hip arthroplasty utilizing a lateral approach. We will institute DVT prophylaxis postoperatively. The patient underwent preoperative medical and cardiac clearance. MMODL / IJN: [id number] /
[~2019-04-24 08:00] MED LIST changes: +ACETAMINOPHEN TAB 500 MG TAB PO ONE; +DEXAMETHASONE SOD PHOSPHATE 10 MG/ML 1 ML VIAL IV ONE; +HEPARIN SODIUM,PORCINE 10,000 UNIT/ML 1 ML VIAL ONE; +HYDROmorphone 0.5 MG/0.5 ML SYRINGE IVP PRN; -LACTATED RINGERS 1,000 ML IV SCH; +MELOXICAM 7.5 MG TAB PO ONE; +MIDAZOLAM 2 MG/2 ML VIAL IV PRN; +ONDANSETRON 4 MG/2 ML VIAL IVP ONE; +SCOPOLAMINE 1.5MG/72HR PATCH TRANSDERM ONE; -SODIUM CHLORIDE 0.9% 1,000 ML IV SCH; +SODIUM CHLORIDE 0.9% IRRIG 1,000 ML BTL IRRIGATION ONE; +TRANEXAMIC ACID 1,000 MG in SODIUM CHLORIDE 0.9% 100 ML IVPB ONE; +ceFAZolin 3 GM in SODIUM CHLORIDE 0.9% 100 ML IVPB ONE
[2019-04-24] MEDS: LACTATED RINGERS 1,000 ML IV SCH ×2 (12:18→20:12)
[2019-04-24] MEDS ORDERED: LIDOCAINE 1% 20 ML VIAL (10MG/ML) FOR IV START INTRADERMA ONE (12:18)
[2019-04-24] MEDS ORDERED: HYDROmorphone (PF) 1 MG/ML ONE (13:27)
[2019-04-24] MEDS ORDERED: PROPOFOL 10 MG/ML 20 ML VIAL IV ONE (13:27)
[2019-04-24] MEDS ORDERED: fentaNYL (PF) 50 MCG/ML 2 ML AMP ONE (13:27)
[2019-04-24] MEDS ORDERED: MIDAZOLAM 2 MG/2 ML VIAL ONE (13:27)
[2019-04-24] MEDS ORDERED: TRANEXAMIC ACID 1,000 MG/10 ML VIAL ONE (13:27)
[2019-04-24] MEDS ORDERED: KETAMINE 10 MG/ML 20 ML VIAL ONE (13:27)
[2019-04-24] MEDS ORDERED: SODIUM CHLORIDE 0.9% 100 ML BAG ONE (13:27)
[2019-04-24] MEDS ORDERED: ceFAZolin 3,000 MG in SODIUM CHLORIDE 0.9% IRRIGATIO 3,000 ML IRRIGATION ONE (14:14)
[2019-04-24] MEDS ORDERED: LACTATED RINGERS 1,000 ML IV ONE (16:02)
[2019-04-24] MEDS ORDERED: MAGNESIUM HYDROXIDE 2,400 MG/10 ML CUP PO PRN (16:12)
[2019-04-24] MEDS ORDERED: ACETAMINOPHEN TAB 325 MG TAB PO PRN (16:12)
[2019-04-24] MEDS ORDERED: NALOXONE 0.4 MG/ML 1 ML VIAL IV PRN (16:12)
[2019-04-24] MEDS ORDERED: traMADol 50 MG TAB PO PRN (16:12)
[2019-04-24] MEDS ORDERED: HYDROmorphone 0.5 MG/0.5 ML SYRINGE IVP PRN (16:12)
[2019-04-24] MEDS ORDERED: HYDROcodone/APAP 7.5-325MG 1 EACH TAB PO PRN (16:12)
--- NOTE | 2019-04-24 16:38 | P.OP ---
Date of Procedure: 04/24/19 Preoperative Diagnosis: Severe left hip osteoarthrosis Postoperative Diagnosis: Same Procedure(s) Performed: Left total hip arthroplastylateral approachpress-fit Implants: Depuy Corail size 13 KLA collared press-fit femoral stem, 36 mm +5 cobalt chrome femoral head, 62 mm [place] acetabular shell with neutral polyethylene liner. Anesthesia: spinal Surgeon: Bull Voss Salon Professional #1: Rodrigo Tom Estimated Blood Loss (ml): 650 Pathology: other (Femoral head) Condition: stable Disposition: PACU Indications for Procedure: The patient's a 53-year-old male who presents with progressive left hip pain secondary to osteoarthrosis despite conservative measures. He notes he is incapacitated because of pain. A discussion of the risks and benefits of operative intervention was made with patient. He opted to proceed. Operative risks to include infection, neurovascular injury, leg length discrepancy, fracture, instability, and possible need for subsequent procedures was discussed. Informed consent was obtained. Operative Findings: As below Description of Procedure: The patient was brought to the operating room, and after induction of spinal anesthesia was placed in a lateral decubitus position. The bony prominences were appropriately padded. The pelvis was stable perpendicular to the floor with a pegboard. The left lower extremity was prepped and draped in normal fashion. A 12 cm incision was then made centered over the greater trochanter extending superiorly to level the ASIS and distally in line with the femoral shaft. The skin and subcutaneous tissues were divided sharply. Electrocautery was used for hemostasis. The fascia danielle and gluteus cici fascia was split in line with the skin incision. The muscle fibers were bluntly dissected proximally. A self-retaining retractor was placed. The anterior and posterior margins of the gluteus medius muscles identified and the anterior two thirds was detached from the greater trochanter with electrocautery. The gluteus minimus tendon was identified and detached in a similar fashion. A wide capsulotomy was performed. The femoral neck fracture was identified in the lower neck cut was made approximately 1 1/2 cm above the level of the lesser trochanter with a sagittal saw at a 45 the shaft. The head was then extracted with a corkscrew. Attention was then paid towards preparing the acetabular. Anterior and posterior retractors were placed. The remaining capsular labral tissues debrided sharply clearly defining the acetabular margins. Began reaming with a 53 mm reamer taking care to initially medialize, then reaming at 45 of abduction and 20 of anteversion. Sequential reaming is performed up to 61 mm. This was down to bleeding bony surface. A trial 62 mm acetabular shell was inserted at 45 of abduction and 20 of anteversion. This was fully seated. There was good rim fit and stability. I did place a 6.5 mm x 25 mm cancellus screw posterior/superior with good purchase. A neutral polyethylene liner was then impacted. Care taken to avoid any soft tissue interposition. Attention was then paid towards preparing the proximal femur. A box chisel was used to open the metaphyseal region. A canal finder was used to find the femoral canal. Sequential broaching was performed up to a size 13. This is placed in 15 of anteversion with the leg perpendicular floor judging off the trans-epicondylar axis. There is good rotational stability. A calcar mill was used to fashion the medial calcar. A trial standard neck along with a 36 mm + 5 trial head was placed. The hip was gently reduced. It was taken through range of motion. I felt to be stable in flexion and extension with internal and external rotation. I felt there was adequate faith of soft tissue tension. The hip was gently dislocated. The trial components removed. Pulsatile lavage was utilized. The final size 13 KLA collared femoral stem was inserted again with the leg perpendicular to the floor in 15 of anteversion. Again there was good rotational stability. A 36 mm + 5 cobalt chrome femoral head was gently impacted. The hip was gently reduced. Again it was taken through motion and felt to be stable in flexion and extension with internal and external rotation. Pulsatile lavage was again utilized. With the leg in abduction the gluteus minimus and medius tendons reattached to the greater trochanter with #2 Ethibond suture. There was minimal drainage therefore a deep drain was not placed. The fascia danielle and gluteus cici fascia was closed with #2 Ethibond suture. The subcutaneous tissues were reapproximated interrupted 2-0 Vicryl sutures. The skin was reapproximated with 3-0 subcuticular strata fix suture. Skin tape and adhesive was applied. A sterile dressing was applied. The patient was awoken from sedation and transferred to recovery room in good condition. Blood loss was estimated 650 mL. He did receive Cell Saver. No complications were incurred. Sponge and needle counts were correct in the case. Alli CALLAWAY assisted during the major composes case to include exposure, implantation, and closure.
--- NOTE | 2019-04-24 16:52 | XR ---
PROCEDURE: XR Hip Limited LT - 1V DATE AND TIME: 04/24/2019 4:45 PM CLINICAL INDICATION: PHH; Status post hip surgery, assess surgical alignment TECHNIQUE: Coned AP portable left hip COMPARISON: None FINDINGS: The left hip prosthesis appears anatomically positioned and aligned. Postprocedure changes appreciated. No unexpected findings. IMPRESSION: Postoperative one view.
[2019-04-24 18:05] VITALS: BMI 52.1
[2019-04-24] MEDS: HYDROcodone/APAP 7.5-325MG 1 EACH TAB PO PRN (20:10)
[2019-04-24] MEDS ORDERED: SENNOSIDES-DOCUSATE SODIUM 1 EACH TAB PO SCH (21:00)
[2019-04-24] MEDS: HYDROmorphone 1 MG/ML 1 ML SYRINGE IVP PRN (21:38)
[2019-04-24] MEDS: METOPROLOL TARTRATE 12.5 MG TAB PO SCH (21:38)
[2019-04-24] MEDS: ceFAZolin 3 GM in SODIUM CHLORIDE 0.9% 100 ML IVPB SCH (22:55)
--- NOTE | 2019-04-24 23:27 | P.CONS ---
History of Present Illness - Reason for Consult Consult date: 04/24/19 post op medical management Requesting physician: Bull Voss - Chief Complaint Scheduled left total hip arthroplasty - History of Present Illness 53-year-old male with history of A. fib Patient presented for scheduled left total hip arthroplasty due to severe advanced osteoarthritis., patient tolerated procedure well, with no observed immediate complications. denies any chest pain or trouble breathing,. patient did not pass urine or bowel movement yet. denies any abd pain nausea or vomiting. patient has JUAN C compliant with CPAP. afib on ASA, currently rate controlled on metoprolol. he reports that pain well tolerated and controlled at this time Review of Systems Pertinent positives as noted in HPI. All other systems were reviewed and are negative Past Medical History Past Medical History: Atrial Fibrillation, Osteoarthritis (OA), Sleep Apnea/CPAP/BIPAP Additional Past Medical History / Comment(s): . History of Any Multi-Drug Resistant Organisms: None Reported Past Surgical History: Heart Catheterization, Joint Replacement, Orthopedic Surgery Additional Past Surgical History / Comment(s): rt little toe surgery to straighten toe, vasectomy, RIGHT HIP REPLACEMENT, Past Anesthesia/Blood Transfusion Reactions: No Reported Reaction Past Psychological History: No Psychological Hx Reported Smoking Status: Never smoker Past Alcohol Use History: Occasional Past Drug Use History: None Reported - Past Family History Mother Family Medical History: Cancer Father Family Medical History: Cancer Medications and Allergies Home Medications Medication Instructions Recorded Confirmed Type Ascorbic Acid [Vitamin C] 1,000 mg PO DAILY 04/19/19 04/24/19 History Loratadine [Claritin] 10 mg PO DAILY 04/19/19 04/24/19 History Metoprolol Tartrate [Lopressor] 12.5 mg PO BID 04/19/19 04/24/19 History Multivitamins, Thera [Multivitamin 1 tab PO DAILY 04/19/19 04/24/19 History (formulary)] Vitamin D(Dose Unknown) 1 tab PO DAILY 04/19/19 04/24/19 History Allergies Allergy/AdvReac Type Severity Reaction Status Date / Time No Known Allergies Allergy Verified 04/24/19 17:47 Physical Exam Vitals: Vital Signs Temp Pulse Pulse Resp BP Pulse Ox 04/24/19 18:27 74 125/86 04/24/19 17:45 98.4 F 72 12 110/76 93 L 04/24/19 17:15 85 16 138/80 95 04/24/19 17:00 63 18 134/82 92 L 04/24/19 16:45 71 18 122/76 92 L 04/24/19 16:29 97.2 F L 57 L 16 130/86 93 L 04/24/19 12:05 98.7 F 74 16 151/79 95 Intake and Output 04/24/19 04/24/19 04/24/19 06:59 14:59 22:59 Intake Total 1101 350 Output Total 650 Balance 1101 -300 Intake: IV 1101 350 Output: Estimated Blood Loss 650 Constitutional: No acute distress, conversant, pleasant, obese Eyes: Anicteric sclerae, moist conjunctiva, no lid-lag Pupils equal round reactive to light ENMT: NC/AT Oropharynx clear, no erythema, exudates Neck: Supple, FROM, no masses, or JVD No carotid bruits No thyromegaly Lungs: Clear to auscultation Clear to percussion Normal respiratory effort, no accessory muscle use Cardiovascular: Heart regular in rate and rhythm, No murmurs, gallops, or rubs No peripheral edema Abdominal: Soft Nontender, no guarding, rebound or rigidity Abdomen moving with respiration Normoactive bowel sounds No hepatomegaly, No splenomegaly No palpable mass No abdominal wall hernia noted Skin: Normal temperature, tone, texture, turgor No induration No subcutaneous nodules No rash, lesions No ulcers Extremities: Surgical dressing over the left hip looks dry intact and clean No digital cyanosis No clubbing Pedal pulses intact and symmetrical Radial pulses intact and symmetrical No calf tenderness Psychiatric: Alert and oriented to person, place and time Appropriate affect fair judgement Neuro Muscles Strength 5/5 in all 4 extremities Limited over left lower extremity due to recent surgery Sensation to light touch grossly present throughout Cranial nerves II-XII grossly intact No focal sensory deficits Lymphatics: no palpable cervical or supraclavicular , or inguinal lymph nodes Assessment and Plan Assessment: 53-year-old male with history of A. fib on ASA admitted for scheduled left hip total arthroplasty tolerated procedure well no observed immediate complications medicine was consulted for medical management postoperatively Plan: severe OA left hip, s/p left total hip arthroplasty POD zero pain management and DVT ppx per orthopedic service afib rate controlled on metoprolol JUAN C , continue to use CPAP morbid obesity , consider OP evaluation for bariatric surgery DVT PPX per ortho , currently on xarelto follow up morning labs Thank you for allowing us to participate in the care of this patient. Do not hesitate to contact us with questions. Someone can be reached from the [facility] hospitalist group at all hours of the day at [phone].
[2019-04-25] MEDS: HYDROmorphone 1 MG/ML 1 ML SYRINGE IVP PRN (00:36)
[2019-04-25] MEDS: HYDROcodone/APAP 7.5-325MG 1 EACH TAB PO PRN ×2 (02:30→09:11)
[2019-04-25] MEDS: ceFAZolin 3 GM in SODIUM CHLORIDE 0.9% 100 ML IVPB SCH (05:46)
[2019-04-25] MEDS ORDERED: SODIUM CHLORIDE 0.9% 1,000 ML IV ONE (06:47)
[2019-04-25 08:33] VITALS: BP 126/72; PULSE 77; RESP 18; TEMP 97.8
[2019-04-25 08:57] LABS: Basophils % (A) 0 %; Eosinophils # (A) 0.1 k/uL (0-0.7); Eosinophils % (A) 1 %; HCT 34.7 % (39.0-53.0); HGB 11.1 gm/dL (13.0-17.5); Lymphocytes # (A) 1.1 k/uL (1.0-4.8); Lymphocytes % (A) 13 %; MCH 30.2 pg (25.0-35.0); MCHC 32.1 g/dL (31.0-37.0); MCV 94.1 fL (80.0-100.0); Mean Platelet Volume 7.9; Monocytes # (A) 0.7 k/uL (0-1.0); Monocytes % (A) 9 %; Neutrophils # (A) 6.4 k/uL (1.3-7.7); Neutrophils % (A) 76 %; Platelet Count 232 k/uL (150-450); RBC 3.69 m/uL (4.30-5.90); RDW 14.7 % (11.5-15.5); WBC 8.5 k/uL (3.8-10.6)
[2019-04-25] MEDS ORDERED: RIVAROXABAN 10 MG TAB PO SCH (09:00)
[2019-04-25] MEDS ORDERED: FAMOTIDINE 20 MG TAB PO SCH (09:00)
[2019-04-25] MEDS: METOPROLOL TARTRATE 12.5 MG TAB PO SCH (09:11)
--- NOTE | 2019-04-25 10:25 | P.PN ---
Subjective Progress Note Date: 04/25/19 Patient seen and examined at bedside reports his pain is adequately controlled. Denies any chest pain or shortness of breath and no acute events overnight hemoglobin this morning 11.1,, Objective - Vital Signs Vital signs: Vital Signs Temp 97.8 F 04/25/19 07:14 Pulse 77 04/25/19 07:14 Resp 18 04/25/19 07:14 BP 126/72 04/25/19 07:14 Pulse Ox 94 L 04/25/19 07:14 Intake & Output 04/24/19 04/25/19 04/25/19 18:59 06:59 18:59 Intake Total 1451 600 Output Total 650 851 Balance 801 -251 Intake: IV 1451 Intake, IV Titration 600 Amount Lactated Ringers 1,000 ml 500 @ 50 mls/hr IV .Q20H [facility] Rx#:[id number] ceFAZolin 3 gm In Sodium 100 Chloride 0.9% 100 ml @ 200 mls/hr IVPB Q8H [facility] Rx#:[id number] Output: Urine 850 Urine/Stool Mix 1 Estimated Blood Loss 650 Other: Voiding Method Toilet # Voids 1 - Exam Constitutional: No acute distress, conversant, pleasant Eyes: Anicteric sclerae, moist conjunctiva, no lid-lag, PERRLA ENMT: NC/AT,Oropharynx clear, no erythema, exudates Neck:Supple, FROM, no masses, or JVD, No carotid bruits; No thyromegaly Lungs: Clear to auscultation, Clear to percussion, Normal respiratory effort, no accessory muscle use Cardiovascular: Irregularly irregular rhythm, No murmurs, gallops, or rubs no peripheral edema Abdominal: Soft Nontender, nom distended, no guarding, no rebound or rigidity, Normoactive bowel sounds No hepatomegaly, No splenomegaly, No palpable mass No abdominal wall hernia noted Skin: Normal temperature, tone, texture, turgor, No induration No subcutaneous nodules, No rash, lesions, No ulcers Extremities:No digital cyanosis No clubbing, Pedal pulses intact and symmetrical Radial pulses intact and symmetrical Normal gait and station, No calf tenderness Psychiatric: Alert and oriented to person, place and time, Appropriate affect Intact judgement Neuro: Muscles Strength 5/5 in all 4 extremities, Sensation to light touch grossly present throughout, Cranial nerves II-XII grossly intact. No focal sensory deficits - Labs CBC & Chem 7: 04/25/19 07:25 Labs: Abnormal Lab Results - Last 24 Hours (Table) 04/25/19 Range/Units 07:25 RBC 3.69 L (4.30-5.90) m/uL Hgb 11.1 L D (13.0-17.5) gm/dL Hct 34.7 L (39.0-53.0) % Assessment and Plan (1) Atrial fibrillation Narrative/Plan: * Currently rate controlled * Continue metoprolol and aspirin Current Visit: Yes Status: Acute Code(s): I48.91 - UNSPECIFIED ATRIAL FIBRILLATION SNOMED Code(s): 77022638 (2) Obesity Narrative/Plan: * The patient instructed to contemplate asking his primary care physician for referral to bariatric surgeon Current Visit: Yes Status: Acute Code(s): E66.9 - OBESITY, UNSPECIFIED SNOMED Code(s): 342784804 (3) History of total left hip arthroplasty Narrative/Plan: * Defer pain management and DVT prophylaxis to primary orthopedic service Current Visit: Yes Status: Acute Code(s): Z96.642 - PRESENCE OF LEFT ARTIFICIAL HIP JOINT SNOMED Code(s): 444726661499 (4) Obstructive sleep apnea Narrative/Plan: * Compliant with CPAP therapy Current Visit: Yes Status: Acute Code(s): G47.33 - OBSTRUCTIVE SLEEP APNEA (ADULT) (PEDIATRIC) SNOMED Code(s): 29555645 Plan: Disposition * Patient doing well postop medically stable for discharge * Signing off today
--- NOTE | 2019-04-25 11:33 | P.PN ---
Subjective Progress Note Date: 04/25/19 Principal diagnosis: Status post left total hip arthroplasty Patient evaluated at bedside, his is present. He is doing very well at this time, his pain is well-controlled. He's been up ambulating with therapy, his done downstairs. He denies any chest pain or shortness of breath. Objective - Vital Signs Vital signs: Vital Signs Temp 97.8 F 04/25/19 07:14 Pulse 77 04/25/19 07:14 Resp 18 04/25/19 07:14 BP 126/72 04/25/19 07:14 Pulse Ox 94 L 04/25/19 07:14 Intake & Output 04/24/19 04/25/19 04/25/19 18:59 06:59 18:59 Intake Total 1451 600 Output Total 650 851 Balance 801 -251 Intake: IV 1451 Intake, IV Titration 600 Amount Lactated Ringers 1,000 ml 500 @ 50 mls/hr IV .Q20H RADHA Rx#:[id number] ceFAZolin 3 gm In Sodium 100 Chloride 0.9% 100 ml @ 200 mls/hr IVPB Q8H RADHA Rx#:[id number] Output: Urine 850 Urine/Stool Mix 1 Estimated Blood Loss 650 Other: Voiding Method Toilet # Voids 1 - Exam Left lower extremity: Incision is clean, dry, and intact. The exofin fusion tape is in good condition. There is minimal soft tissue swelling and ecchymosis surrounding the medial and lateral aspects of the incision. Calf is soft, no tenderness with palpation. Plantar flexion, dorsiflexion, EHL, FHL are intact. Sensory exam to light touch throughout the extremity is intact, dorsal pedis pulses 2+. - Labs CBC & Chem 7: 04/25/19 07:25 Labs: Abnormal Lab Results - Last 24 Hours (Table) 04/25/19 Range/Units 07:25 RBC 3.69 L (4.30-5.90) m/uL Hgb 11.1 L D (13.0-17.5) gm/dL Hct 34.7 L (39.0-53.0) % Assessment and Plan Plan: Assessment: Postoperative day 1 status post left total hip arthroplasty Plan: Pain control, oral medication after discharge GI and DVT prophylaxis, Eliquis 2.5mg bid for 1 month Wound care instructions discussed Home physical therapy and nursing after discharge Medical recommendations Plan for discharge home today Time with Patient: Less than 30
--- NOTE | 2019-04-25 11:38 | P.DS ---
Providers Date of admission: 04/24/19 11:34 Expected date of discharge: 04/25/19 Attending physician: Bull Voss Consults: 04/24/19 16:12 Consult Physician Routine Consulting Provider: Valerie Diaz Consult Reason/Comments: medical management Do you want consulting provider notified?: Yes Primary care physician: Valerie Diaz MD Hospital Course: Date of admission: 04/24/2019 Date of discharge: 04/25/2019 Admission diagnosis: Status post left total hip arthroplasty Discharge diagnosis: Same Attending physician: Dr. Voss Surgical procedures: Left total hip arthroplasty Brief history: Patient is a 53-year-old male with a history of progressive primary left hip osteoarthritis. At this point patient has failed conservative treatment measures and has opted to proceed with a elective left total hip arthroplasty. Hospital course: Details of patient's surgery can be found in operative report. Patient tolerated the procedure well and was subsequently transported to orthopedic floor. Patient's orthopeidc and medical care was provided daily. Patient had daily laboratory tests performed for evaluation of overall blood counts. Patient had daily physical therapy to include strengthening range of motion as well as education with walker ambulation. Patient was treated with Xarelto for their postoperative DVT prophylaxis during their inpatient stay. Maikel grullon was noted to have a relatively uneventful postoperative course. Patient reported satisfactory pain control with oral pain medications by postoperative day 0. Patient showed satisfactory progress with physical therapy. Patient moved steadily through the program and had no difficulty meeting the goals by postoperative day 1. Given patient's otherwise satisfactory course and having met physical therapy goals, plan is to discharge patient home on postoperative day 1. Discharge condition/disposition: Patient will be discharged home in stable condition. Discharge medications: Instructions are given on resumption of patient's normal daily medications per primary care recommendation, in addition patient will be prescribed [place] 7.5 mg/325 mg, Eliquis 2.5mg, Colace 100mg. Discharge instructions: 1. Wound care and infection precautions, keep incision dry and covered while showering, no lotions, creams, moisturizers. No soaking, tubs, pools, hottubs. Do not scrub over the incision. 2. Weight-bear as tolerated with walker / cane until follow-up. 3. Ice and elevate when necessary. Do not exceed 20 minutes per hour with ice pack. 4. Utilize compression sleeve until seen at first follow up appointment. 5. Visiting nursing care. 6. Home physical therapy. 7. Pain meds and anticoagulants per prescription. 8. Pain medication has potential to cause constipation. Increase oral fluid and fiber intake. Contact primary care provider if you have not had a bowel movement within 48 hours after discharge 9. No anti-inflammatory medication until discussed at first post operative visit, this including Motrin, Aleve, Mobic, Diclofenac. 10. Follow up in office at 2 weeks postop with Alli Tom PA-C 11. Follow up with your primary care doctor 7-10 days after discharge. 12. Contact [facility] with any questions, . Procedures: Left total hip arthroplasty Patient Condition at Discharge: Good Plan - Discharge Summary Discharge Rx Participant: Yes New Discharge Prescriptions: New Docusate [Colace] 100 mg PO DAILY #30 capsule Apixaban [Eliquis] 2.5 mg PO BID #60 tab HYDROcodone/APAP 7.5-325MG [[place] 7.5] 1 - 2 each PO Q6HR PRN #56 tab PRN Reason: Pain No Action Loratadine [Claritin] 10 mg PO DAILY Multivitamins, Thera [Multivitamin (formulary)] 1 tab PO DAILY Ascorbic Acid [Vitamin C] 1,000 mg PO DAILY Vitamin D(Dose Unknown) 1 tab PO DAILY Metoprolol Tartrate [Lopressor] 12.5 mg PO BID Discharge Medication List Ascorbic Acid [Vitamin C] 1,000 mg PO DAILY 04/19/19 [History] Loratadine [Claritin] 10 mg PO DAILY 04/19/19 [History] Metoprolol Tartrate [Lopressor] 12.5 mg PO BID 04/19/19 [History] Multivitamins, Thera [Multivitamin (formulary)] 1 tab PO DAILY 04/19/19 [History] Vitamin D(Dose Unknown) 1 tab PO DAILY 04/19/19 [History] Apixaban [Eliquis] 2.5 mg PO BID #60 tab 04/25/19 [Rx] Docusate [Colace] 100 mg PO DAILY #30 capsule 04/25/19 [Rx] HYDROcodone/APAP 7.5-325MG [[place] 7.5] 1 - 2 each PO Q6HR PRN #56 tab 04/25/19 [Rx] Follow up Appointment(s)/Referral(s): Rodrigo Tom PAC [PHYSICIAN SECTION [employer]SEKEEPER] - 05/09/19 3:10 pm Activity/Diet/Wound Care/Special Instructions: Orthopedic Discharge Instructions: 1. Wound care and infection precautions, keep incision dry and covered while showering, no lotions, creams, moisturizers. No soaking, pools, hot tubs. Do not scrub over incision. 2. Weight-bear as tolerated with walker / cane until follow-up. 3. Ice and elevate when necessary. Do not exceed 20 minutes per hour with ice pack. 4. Utilize compression sleeve until seen at first follow up appointment. 5. Pain meds and anticoagulants per prescription. 6. Pain medication has potential to cause constipation. Increase oral fluid and fiber intake. Contact primary care provider if you have not had a bowel movement within 48 hours after discharge. 7. No anti-inflammatory medication until discussed at first post operative visit, this including Motrin, Aleve, Mobic, Diclofenac. 8. Follow up in office at 2 weeks postop with Alli Tom PA-C 9. Follow up with your primary care doctor 7-10 days after discharge. 10. Contact [facility] with any questions, . Discharge Disposition: HOME WITH HOME HEALTH SERVICES
== END 2019-04-25 15:12 | disposition home health service (06) | DRG 470 ==
LOC: EDSTATUS 08:00 → 2ORMAIN 11:34 → 4SSUR 16:58
PROVIDERS: ADMIT Orthopaedic Surgery; ATTEND Orthopaedic Surgery
PROC: 30233N0 Transfusion of Autologous Red Blood Cells into Peripheral Vein, Percutaneous Approach (ICD-10-PCS; 2019-04-24)
PROC: 0SRB04A Replacement of Left Hip Joint with Ceramic on Polyethylene Synthetic Substitute, Uncemented, Open Approach (ICD-10-PCS; principal; 2019-04-24 13:25)
DX: M16.12 Unilateral primary osteoarthritis, left hip (principal); Z68.42 Body mass index [BMI] 45.0-49.9, adult; Q21.1 Atrial septal defect; E66.01 Morbid (severe) obesity due to excess calories; I08.1 Rheumatic disorders of both mitral and tricuspid valves; I10 Essential (primary) hypertension; I37.1 Nonrheumatic pulmonary valve insufficiency; G47.33 Obstructive sleep apnea (adult) (pediatric); I48.2 Chronic atrial fibrillation; Z79.899 Other long term (current) drug therapy; Z96.641 Presence of right artificial hip joint; Z98.52 Vasectomy status; Z98.890 Other specified postprocedural states; Z82.5 Family history of asthma and other chronic lower respiratory diseases; Z82.49 Family history of ischemic heart disease and other diseases of the circulatory system; Z83.3 Family history of diabetes mellitus; Z82.61 Family history of arthritis
CPT/HCPCS: 73501; 85025; 86850; 86900; 86901; 88300

== ENCOUNTER → 2019-07-27 | Outpatient (CLI) | payer BC ==
[2019-07-27 16:35] LABS: Basophils # (A) 0.1 k/uL (0-0.2); Basophils % (A) 1 %; Eosinophils # (A) 0.2 k/uL (0-0.7); Eosinophils % (A) 3 %; HCT 43.4 % (39.0-53.0); HGB 14.1 gm/dL (13.0-17.5); Lymphocytes # (A) 1.8 k/uL (1.0-4.8); Lymphocytes % (A) 26 %; MCH 29.8 pg (25.0-35.0); MCHC 32.4 g/dL (31.0-37.0); Mean Platelet Volume 6.9; Monocytes # (A) 0.4 k/uL (0-1.0); Monocytes % (A) 6 %; Neutrophils # (A) 4.3 k/uL (1.3-7.7); Neutrophils % (A) 61 %; Platelet Count 318 k/uL (150-450); RBC 4.72 m/uL (4.30-5.90); RDW 13.6 % (11.5-15.5)
[2019-07-27 18:44] LABS: Erythrocyte Sedimentation Rate 24 mm/hr (0-15)
== END | disposition home or self-care (01) ==
LOC: LABWHC1 16:01
PROVIDERS: ATTEND Orthopaedic Surgery
DX: M25.552 Pain in left hip (principal)
CPT/HCPCS: 36415; 85025; 85652; 86140

== ENCOUNTER → 2020-08-21 | Outpatient (CLI) | payer BC ==
[2020-08-21 08:31] LABS: Basophils # (A) 0.1 k/uL (0-0.2); Basophils % (A) 1 %; Eosinophils # (A) 0.2 k/uL (0-0.7); Eosinophils % (A) 3 %; HCT 48.1 % (39.0-53.0); HGB 15.3 gm/dL (13.0-17.5); Lymphocytes # (A) 1.9 k/uL (1.0-4.8); Lymphocytes % (A) 33 %; MCHC 31.8 g/dL (31.0-37.0); MCV 94.5 fL (80.0-100.0); Mean Platelet Volume 7.6; Monocytes # (A) 0.3 k/uL (0-1.0); Monocytes % (A) 6 %; Neutrophils # (A) 3.3 k/uL (1.3-7.7); Neutrophils % (A) 56 %; Platelet Count 231 k/uL (150-450); RBC 5.09 m/uL (4.30-5.90); RDW 13.3 % (11.5-15.5); WBC 5.9 k/uL (3.8-10.6)
[2020-08-21 12:08] LABS: African American GFR (CKD) 99.1 (60.0-200.0); Albumin 4.4 g/dL (3.80-4.90); Albumin/Globulin Ratio 1.33 (1.60-3.17); Anion Gap 8.7 mmol/L (4.00-12.00); Calcium 9.7 mg/dL (8.7-10.3); Carbon Dioxide 31.3 mmol/L (21.6-31.8); Chol/HDL Ratio 2.98; Globulin 3.3 g/dL (1.6-3.3); LDL Cholesterol,Calculated 77.4 mg/dL (0.0-131.0); Non-African American GFR(CKD) 85.5 (60.0-200.0); Potassium 4.7 mmol/L (3.5-5.5); Total Bilirubin 0.8 mg/dL (0.2-1.2); Total Protein 7.7 g/dL (6.2-8.2); VLDL Calculation 13.6 mg/dL (5.00-40.00)
== END | disposition home or self-care (01) ==
LOC: LABWHC1 07:01
PROVIDERS: ATTEND Nurse Practitioner Adult Health
DX: J06.9 Acute upper respiratory infection, unspecified (principal); J45.909 Unspecified asthma, uncomplicated; E66.9 Obesity, unspecified; I73.89 Other specified peripheral vascular diseases; I10 Essential (primary) hypertension; U07.1 COVID-19
CPT/HCPCS: 36415; 80053; 80061; 82306; 83036; 84443; 85025; 86769

== ENCOUNTER → 2022-05-13 | Outpatient (CLI) | payer BC ==
[2022-05-13 14:06] LABS: Basophils # (A) 0.03 X 10*3/uL (0.00-0.10); Basophils % (A) 0.5 %; Eosinophils # (A) 0.26 X 10*3/uL (0.04-0.35); Eosinophils % (A) 4.6 %; HCT 46.6 % (39.6-50.0); HGB 14.3 g/dL (13.0-17.0); Immature Grans, Automated 0.2 %; Lymphocytes # (A) 1.69 X 10*3/uL (0.90-5.00); Lymphocytes % (A) 30.1 %; MCH 29.8 pg (27.0-32.0); MCHC 30.7 g/dL (32.0-37.0); MCV 97.1 fL (80.0-97.0); Mean Platelet Volume 10.2 fL (9.5-12.2); Monocytes # (A) 0.46 X 10*3/uL (0.20-1.00); Monocytes % (A) 8.2 %; NRBC Per 100 WBC 0 /100 WBCS (0.0-0.0); Neutrophils # (A) 3.16 X 10*3/uL (1.80-7.70); Neutrophils % (A) 56.4 %; Platelet Count 269 X 10*3/uL (140-440); RDW 13.2 % (11.5-14.5); WBC 5.61 X 10*3/uL (4.50-10.00)
[2022-05-13 18:58] LABS: ALT 29 U/L (10-49); AST 23 U/L (14-35); African American GFR (CKD) 97.8 (60.0-200.0); Albumin 4.3 g/dL (3.8-4.9); Albumin/Globulin Ratio 1.19 (1.60-3.17); Alkaline Phosphatase 84 U/L (41-126); Blood Urea Nitrogen 17.9 mg/dL (9.0-27.0); Calcium 9.5 mg/dL (8.7-10.3); Carbon Dioxide 28.7 mmol/L (20.0-27.5); Chloride 103 mmol/L (96-109); Globulin 3.6 g/dL (1.6-3.3); Glucose 110 mg/dL (70-110); Non-African American GFR(CKD) 84.4 (60.0-200.0); Potassium 4.7 mmol/L (3.5-5.5); Sodium 142 mmol/L (135-145); Total Protein 7.9 g/dL (6.2-8.2)
[2022-05-13 19:22] LABS: Chol/HDL Ratio 2.79 Ratio
== END | disposition home or self-care (01) ==
LOC: LABWHC1 10:15
PROVIDERS: ATTEND Internal Medicine
DX: Z12.5 Encounter for screening for malignant neoplasm of prostate (principal); I10 Essential (primary) hypertension
CPT/HCPCS: 36415; 80053; 80061; 83721; 84153; 84443; 85025